=== PATIENT | female | born 1985 | race Caucasian/White ===

== ENCOUNTER 2017-06-08 11:18 | Emergency (ER) | payer BC ==
[2017-06-08 12:24] VITALS: BP 127/68
--- NOTE | 2017-06-08 12:35 | UC ---
Respiratory Complaint HPI - HPI Summary HPI Summary: 32 yo female with nasal congestion and sinus pressure for 3 weeks has dramatically worsened over the past week no fever/chills - History of Current Complaint Chief Complaint: UCGeneralIllness Stated Complaint: SINUS COMPLAINT Time Seen by Provider: 06/08/17 12:27 Hx Obtained From: Patient Hx Last Menstrual Period: 06/05/17 Onset/Duration: Gradual Onset, Lasting Weeks - 3 Timing: Constant Severity Initially: Moderate Severity Currently: Moderate Pain Intensity: 4 Pain Scale Used: 0-10 Numeric Character: Cough: Nonproductive Aggravating Factors: Nothing Alleviating Factors: Other - netti pot Associated Signs And Symptoms: Positive: URI, Nasal Congestion - Allergies/Home Medications Allergies/Adverse Reactions: Allergies Allergy/AdvReac Type Severity Reaction Status Date / Time No Known Allergies Allergy Verified 06/08/17 12:24 Home Medications: Home Medications Ctyswbjqnvatprik-Gareuefqwk-JN [Vicks Nyquil Cold & Flu 15-6.25-325 mg] 2 tab PO BEDTIME PRN 06/08/17 [History Confirmed 06/08/17] Dextromethorphan-Guaifenesin [Mucinex Fast-Max Dm Max 20-400 mg/20Ml] 20 ml PO Q4HR PRN 06/08/17 [History Confirmed 06/08/17] PMH/Surg Hx/FS Hx/Imm Hx Previously Healthy: Yes - Surgical History Surgical History: Yes Surgery Procedure, Year, and Place: Bilateral knee surgery, ACL tears, has screws in both knees. - Family History Known Family History: Positive: Cardiac Disease - father, Hypertension - father , Diabetes - maternal - Social History Alcohol Use: Weekly Substance Use Type: None Smoking Status (MU): Never Smoked Tobacco - Immunization History Most Recent Influenza Vaccination: NOT UTD Review of Systems Constitutional: Negative Skin: Negative Eyes: Negative ENT: Nasal Discharge, Sinus Congestion, Sinus Pain/Tenderness Respiratory: Negative Cardiovascular: Negative Gastrointestinal: Negative Genitourinary: Negative Motor: Negative Neurovascular: Negative Musculoskeletal: Negative Neurological: Negative Psychological: Negative Is Patient Immunocompromised?: No All Other Systems Reviewed And Are Negative: Yes Physical Exam Triage Information Reviewed: Yes Appearance: Well-Appearing, No Pain Distress, Well-Nourished Vital Signs: Initial Vital Signs Temp 98.4 F 06/08/17 12:20 Pulse 78 06/08/17 12:20 Resp 16 06/08/17 12:20 BP 127/68 06/08/17 12:20 Pulse Ox 100 06/08/17 12:20 Vital Signs Reviewed: Yes Eyes: Positive: Conjunctiva Clear ENT: Positive: Hearing grossly normal, Pharynx normal, Nasal congestion, Nasal drainage, Sinus tenderness, Uvula midline Neck: Positive: Supple, Nontender Respiratory: Positive: Lungs clear, Normal breath sounds, No respiratory distress, No accessory muscle use Cardiovascular: Positive: RRR, No Murmur Musculoskeletal: Positive: ROM Intact, No Edema Neurological: Positive: Alert Psychological Exam: Normal Skin Exam: Normal UC Diagnostic Evaluation - Laboratory O2 Sat by Pulse Oximetry: 100 - normal/not hypoxic Respiratory Course/Dx - Differential Dx/Diagnosis Provider Diagnoses: acute sinusitis Discharge - Discharge Plan Condition: Stable Disposition: HOME Prescriptions: Amoxicillin PO (*) [Amoxicillin 875 MG (*)] 875 mg PO BID #20 tab Fluconazole 150 MG (NF) [Diflucan 150 mg (NF)] 150 mg PO ONCE #1 tab Patient Education Materials: Sinusitis (ED) Referrals: No Primary Care Phys,NOPCP [Primary Care Provider] - Additional Instructions: recheck in about 5 days if not better
== END 2017-06-08 12:42 | disposition home or self-care (01) ==
LOC: UCEAST 11:18
DX: J01.90 Acute sinusitis, unspecified (principal)
CPT/HCPCS: 99212; G0463